=== PATIENT | male | born 1980 | race Caucasian/White ===

== ENCOUNTER 2019-11-02 09:34 | Emergency (ER) | payer MEDICAID ==
[~2019-11-02] VITALS: Ht 165.1 cm; Wt 72.6 kg
[2019-11-02 09:38] VITALS: BP 130/62
--- NOTE | 2019-11-02 09:58 | NUR ---
PT C/O DIZZINESS, RECTAL BLEEDING FOR 8 MONTHS, INTERMITENT LOWER ABDOMINAL PAIN BUT NO PAIN AT THIS TIME. DENIES N/V/D; SKIN IS PINK/WARM/DRY; AAOX4 WITH EVEN AND STEADY GAIT; LUNGS CLEAR BL; HR EVEN AND REGULAR; PT DENIES ANY FEVER, CP, SOB, OR COUGH AT THIS TIME; PATIENT STATES PAIN OF 0/10 AT THIS TIME; VSS; PATIENT POSITIONED FOR COMFORT; HOB ELEVATED; BEDRAILS UP X1; BED DOWN. ER MADE AWARE OF PT STATUS. Addendum: 11/02/19 at 1014 by MED PT DENIES RECENT WEIGHT LOSS, APPETITE CHANGES, OR FAMILY HX OF GI CANCER.
--- NOTE | 2019-11-02 10:55 | NUR ---
blood curly at bedside and walked to lab.
[2019-11-02 11:11] LABS: BASOPHILS % (AUTO) 0.7 % (0.0-2.0); EOSINOPHILS # (AUTO) 0.2 K/uL (0-0.4); EOSINOPHILS % (AUTO) 3.1 % (0.0-4.0); HEMATOCRIT 42.8 % (36-52); HEMOGLOBIN 14.2 g/dL (12.0-18.0); LYMPHOCYTES # (AUTO) 1.8 K/uL (2.0-11.5); LYMPHOCYTES % (AUTO) 28.8 % (20.5-51.1); MEAN CORPUSCULAR HEMOGLOBIN 31 pg (27-31); MEAN CORPUSCULAR HGB CONC 33 g/dL (33-37); MEAN CORPUSCULAR VOLUME 92.3 fL (80-94); MONOCYTES # (AUTO) 0.4 K/uL (0.8-1.0); NEUTROPHILS # (AUTO) 3.7 K/uL (1.8-7.7); NEUTROPHILS % (AUTO) 60.4 % (42.2-75.2); PLATELET COUNT (AUTO) 236 K/uL (140-450); RED BLOOD CELL COUNT(AUTO) 4.63 MIL/uL (4.20-6.10); RED CELL DISTRIBUTION WIDTH 14.2 % (11.6-13.7); WHITE BLOOD COUNT (AUTO) 6.1 K/uL (4.8-10.8)
[2019-11-02 11:27] LABS: PROTHROMBIN TIME 9.8 secs (10.8-13.4)
[2019-11-02 11:29] LABS: ANION GAP 12.3 (8-16); CARBON DIOXIDE 25.7 mmol/L (21-32)
[2019-11-02 11:33] LABS: ALBUMIN 3.5 g/dL (3.4-5.0); TOTAL BILIRUBIN 0.6 mg/dL (0.0-1.0)
[2019-11-02 12:06] VITALS: BP 118/55
--- NOTE | 2019-11-02 12:06 | NUR ---
Patient discharged with v/s stable. Written and verbal after care instructions given and explained. Patient verbalized understanding. Ambulatory with steady gait. All questions addressed prior to discharge. Advised to follow up with PMD.
== END 2019-11-02 12:06 | disposition home or self-care (01) ==
LOC: MED 09:34
DX: K62.5 Hemorrhage of anus and rectum (principal)
CPT/HCPCS: 36415; 80053; 82948; 85025; 85610; 85730; 86886; 86900; 86901; 99283

== ENCOUNTER 2020-05-05 23:21 | Emergency (ER) | payer MEDICAID ==
[~2020-05-05] VITALS: Ht 165.1 cm; Wt 71.3 kg
[2020-05-05 23:31] VITALS: BP 157/78
[2020-05-06] MEDS ORDERED: IBUPROFEN 800 MG TAB PO ONE (00:20)
[2020-05-06] MEDS ORDERED: cefTRIAXone 1,000 MG in LIDOCAINE MPF 1% 2.1 ML IM ONE (00:20)
[2020-05-06] MEDS ORDERED: cefTRIAXone 1,000 MG VIAL ONE (00:38)
[2020-05-06] MEDS ORDERED: LIDOCAINE MPF 1% 5 ML ONE (00:39)
[2020-05-06] MEDS ORDERED: LIDOCAINE MPF 1% 10 MG/ML VIAL INJ ONE (02:20)
[2020-05-06 03:31] VITALS: BP 157/78
--- NOTE | 2020-05-06 03:35 | NUR ---
PTS LEFT INDEX FINGER WAS CLEANED W/ NS. PTS FINGER WAS THEN COVERED W/ NON ADHERENT GAUZE PLACED ON A FINGER SPLINT AND WRAPED IN ROLL GAUZE. PTS PMSC WNL.
--- NOTE | 2020-05-06 03:35 | NUR ---
Patient discharged with v/s stable. Written and verbal after care instructions given and explained. Patient alert, oriented and verbalized understanding of instructions. Ambulatory with steady gait. All questions addressed prior to discharge. ID band removed. Patient advised to follow up with PMD. Rx of keflex, norco, ibuprofen given. Patient educated on indication of medication including possible reaction and side effects. Opportunity to ask questions provided and answered.
== END 2020-05-06 03:35 | disposition home or self-care (01) ==
LOC: MED 23:21
DX: S61.311A Laceration without foreign body of left index finger with damage to nail, initial encounter (principal); S61.309A Unspecified open wound of unspecified finger with damage to nail, initial encounter; S62.661A Nondisplaced fracture of distal phalanx of left index finger, initial encounter for closed fracture; Z71.6 Tobacco abuse counseling; W26.9XXA Contact with unspecified sharp object(s), initial encounter; Y93.89 Activity, other specified; Y92.89 Other specified places as the place of occurrence of the external cause; Y99.8 Other external cause status
CPT/HCPCS: 73140; 90471; 90715; 96372; 99284; J0696; J2001

== ENCOUNTER 2021-01-13 19:03 | Emergency (ER) | payer MEDICAID ==
[~2021-01-13] VITALS: Ht 165.1 cm; Wt 69.4 kg
[2021-01-13 19:10] VITALS: BP 107/54
--- NOTE | 2021-01-13 19:15 | NUR ---
PATIENT TO LOBBY
[2021-01-13 21:18] VITALS: BP 110/60
--- NOTE | 2021-01-13 21:18 | NUR ---
Patient discharged with v/s stable. Written and verbal after care instructions given and explained. Patient verbalized understanding. Ambulatory with steady gait. All questions addressed prior to discharge. Advised to follow up with PMD. WORK NOTE GIVEN.
== END 2021-01-13 21:18 | disposition home or self-care (01) ==
LOC: MED 19:03
DX: S20.20XA Contusion of thorax, unspecified, initial encounter (principal); Z90.49 Acquired absence of other specified parts of digestive tract; X58.XXXA Exposure to other specified factors, initial encounter; Y93.89 Activity, other specified; Y92.89 Other specified places as the place of occurrence of the external cause; Y99.0 Civilian activity done for income or pay
CPT/HCPCS: 71101; 93005; 99283

== ENCOUNTER 2021-01-23 11:01 | Emergency (ER) | payer MEDICAID ==
[~2021-01-23] VITALS: Ht 165.1 cm; Wt 72.6 kg
[2021-01-23 11:06] VITALS: BP 119/84
--- NOTE | 2021-01-23 11:11 | NUR ---
PATIENT AMBULATED TO BED 7.
[2021-01-23] MEDS ORDERED: KETOROLAC 60 MG/2 ML VIAL IM ONE (11:15)
--- NOTE | 2021-01-23 11:20 | NUR ---
41 y/o M BIB self from home with c/c left rib pain. Patient A&Ox4, ambulatory, reports L rib pain s/p injury at work 2 weeks ago. 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 Patient states pain worsens with specific movements. Patient denies any medications prior to arrival. Denies abdominal pain, headache, chest pain, SOB, numbness/tingling to extremities. Left rib tender upon palpation; no redness or swelling noted. Bed locked in lowest position, side rails x 1. PMH/Sx/Meds: Denies NKA
--- NOTE | 2021-01-23 11:30 | NUR ---
Pt transported to [facility] via wheelchair
--- NOTE | 2021-01-23 11:42 | NUR ---
PT RETURNED FROM [facility]
--- NOTE | 2021-01-23 12:15 | NUR ---
KIRSTY Bowman evaluating pt at bedside.
[2021-01-23] MEDS ORDERED: NAPR-1704 PO (12:27)
[2021-01-23 12:37] VITALS: BP 119/84
--- NOTE | 2021-01-23 12:38 | NUR ---
Patient discharged with v/s stable. Written and verbal after care instructions ABOUT RIB FRACTURE given and explained. Patient alert, oriented and verbalized understanding of instructions. Ambulatory with steady gait. All questions addressed prior to discharge. ID band removed. Patient advised to follow up with PMD. Rx of NAPROXEN given. Patient educated on indication of medication including possible reaction and side effects. Opportunity to ask questions provided and answered.
== END 2021-01-23 12:38 | disposition home or self-care (01) ==
LOC: MED 11:01
DX: S22.42XA Multiple fractures of ribs, left side, initial encounter for closed fracture (principal); W22.8XXA Striking against or struck by other objects, initial encounter; Y93.89 Activity, other specified; Y92.89 Other specified places as the place of occurrence of the external cause; Y99.8 Other external cause status
CPT/HCPCS: 71101; 96372; 99283; J1885

== ENCOUNTER 2021-06-06 11:56 | Emergency (ER) | payer MEDICAID, SELFPAY ==
[~2021-06-06] VITALS: Ht 165.1 cm; Wt 72.6 kg
[~2021-06-06 11:56] MED LIST: NAPR-1704 PO
[2021-06-06 12:58] VITALS: BP 108/53
--- NOTE | 2021-06-06 13:03 | NUR ---
TENT4
--- NOTE | 2021-06-06 13:20 | NUR ---
COVID RAPID SWAB DONE.
[2021-06-06] MEDS ORDERED: AZIT250T4 PO (13:24)
[2021-06-06] MEDS ORDERED: PHEN177S23 PO (13:24)
[2021-06-06] MEDS ORDERED: NAPR-54 PO (13:24)
--- NOTE | 2021-06-06 14:19 | NUR ---
NO NUSING CARE GIVEN-Patient discharged with v/s stable. Written and verbal after care instructions given and explained. Patient alert, oriented and verbalized understanding of instructions. Ambulatory with steady gait. All questions addressed prior to discharge. ID band removed. Patient advised to follow up with PMD. Rx of ZITHROMAX, NAPROSYN, CHLORASEPTIC given. Patient educated on indication of medication including possible reaction and side effects. Opportunity to ask questions provided and answered.
[2021-06-06 14:21] VITALS: BP 100/50
== END 2021-06-06 14:19 | disposition home or self-care (01) ==
LOC: MED 11:56
DX: U07.1 COVID-19 (principal)
CPT/HCPCS: 99283

== ENCOUNTER 2022-03-13 16:03 | Emergency (ER) | payer MEDICAID ==
[~2022-03-13] VITALS: Ht 162.6 cm; Wt 74.8 kg
[~2022-03-13 16:03] MED LIST changes: +AZIT250T4 PO; +NAPR-54 PO; +PHEN177S23 PO
[2022-03-13 16:15] VITALS: BP 124/67
--- NOTE | 2022-03-13 16:17 | NUR ---
PT TO BED 09 AMBULATORY
--- NOTE | 2022-03-13 17:06 | NUR ---
PT'S BI-LATERAL EARS IRRIGATED WITH NORMAL SALINE AND HYDROGEN PEROXIDE. PA AND RN NOTIFIED.
--- NOTE | 2022-03-13 17:10 | NUR ---
42M PRESENTS TO ED WITH C/O BILATERAL EAR PAIN SINCE FRIDAY S/P CLEANING EARS WITH A Q TIP. PT REPORTS DIMINSHED HEARING, WORSENING ON THE LEFT SIDE. PT ALSO COMPLAINS OF INTERMITTENT HEADACHE. EAR WAX BUILD UP NOTED TO BILATERAL EARS. PT DENIES COUGH FEVER CHILLS OR RECENT SICK CONTACTS.
[2022-03-13] MEDS ORDERED: OFLO5SOL27 BOTH EARS (17:16)
--- NOTE | 2022-03-13 17:38 | NUR ---
Patient discharged with v/s stable. Written and verbal after care instructions ABOUT EARWAX BUILDUP given and explained. Patient alert, oriented and verbalized understanding of instructions. Ambulatory with steady gait. All questions addressed prior to discharge. ID band removed. Patient advised to follow up with PMD. Rx of OFLOXACIN given. Patient educated on indication of medication including possible reaction and side effects. Opportunity to ask questions provided and answered.
== END 2022-03-13 17:38 | disposition home or self-care (01) ==
LOC: MED 16:03
DX: H61.23 Impacted cerumen, bilateral (principal); F17.210 Nicotine dependence, cigarettes, uncomplicated; Z79.899 Other long term (current) drug therapy; Z90.49 Acquired absence of other specified parts of digestive tract; Z71.6 Tobacco abuse counseling
CPT/HCPCS: 99283

== ENCOUNTER 2023-08-21 11:01 | Emergency (ER) | payer MEDICAID, OTHER ==
[~2023-08-21] VITALS: Ht 165.1 cm; Wt 72.6 kg
[~2023-08-21 11:01] MED LIST changes: +OFLO5SOL27 BOTH EARS
[2023-08-21 11:06] VITALS: BP 123/77; PULSE 78; RESP 18; TEMP 97.4; O2SAT 97
[2023-08-21 11:35] LABS: BASOPHILS % (AUTO) 0.5 % (0.0-2.0); EOSINOPHILS # (AUTO) 0.1 K/uL (0-0.4); EOSINOPHILS % (AUTO) 0.9 % (0.0-4.0); HEMATOCRIT 42.6 % (36-52); HEMOGLOBIN 14.5 g/dL (12.0-18.0); LYMPHOCYTES # (AUTO) 2.5 K/uL (2.0-11.5); LYMPHOCYTES % (AUTO) 34.1 % (20.5-51.1); MEAN CORPUSCULAR HEMOGLOBIN 31 pg (27-31); MEAN CORPUSCULAR HGB CONC 34 g/dL (33-37); MEAN CORPUSCULAR VOLUME 89.7 fL (80-94); MONOCYTES # (AUTO) 0.5 K/uL (0.8-1.0); MONOCYTES % (AUTO) 6.9 % (1.7-9.3); NEUTROPHILS # (AUTO) 4.2 K/uL (1.8-7.7); NEUTROPHILS % (AUTO) 57.6 % (42.2-75.2); PLATELET COUNT (AUTO) 289 K/uL (140-450); RED BLOOD CELL COUNT(AUTO) 4.75 MIL/uL (4.20-6.10); RED CELL DISTRIBUTION WIDTH 14.3 % (11.6-13.7); WHITE BLOOD COUNT (AUTO) 7.4 K/uL (4.8-10.8)
[2023-08-21 12:03] LABS: ANION GAP 13.3 (8-16); CALCIUM 8.2 mg/dL (8.5-10.1); CARBON DIOXIDE 24.6 mmol/L (21-32); CREATININE 0.8 mg/dL (0.6-1.3); POTASSIUM 3.9 mmol/L (3.5-5.1)
[2023-08-21] MEDS ORDERED: HYDR25SU91 RC (12:26)
[2023-08-21 12:34] VITALS: BP 119/68; PULSE 71; RESP 16; TEMP 98; O2SAT 99
== END 2023-08-21 12:35 | disposition home or self-care (01) ==
LOC: MED 11:01
DX: K62.5 Hemorrhage of anus and rectum (principal); Z79.899 Other long term (current) drug therapy
CPT/HCPCS: 36415; 80048; 85025; 99283

== ENCOUNTER 2023-09-24 08:34 | Day surgery (SDC) | payer OTHER ==
[~2023-09-24] VITALS: Ht 165.1 cm; Wt 72.6 kg
[~2023-09-24 08:34] MED LIST changes: +HYDR25SU91 RC; +NAPR-337 PO; -NAPR-54 PO
[2023-09-24] MEDS ORDERED: fentaNYL citrate 0.05 MG/ML VIAL ONE (10:50)
[2023-09-24] MEDS ORDERED: MIDAZOLAM 5 MG/5 ML VIAL ONE (10:50)
[2023-09-24] MEDS: MIDAZOLAM 2 MG/2 ML VIAL IVP ONE (11:20)
[2023-09-24] MEDS: LIDOCAINE 2% 100 MG/5 ML UJET TP ONE (11:20)
[2023-09-24] MEDS: fentaNYL citrate 0.05 MG/ML VIAL IVP ONE (11:21)
[2023-09-24] MEDS ORDERED: FENTANYL C 0.025 MG/HR PATCH TD SCH (12:35)
== END 2023-09-24 12:46 | disposition home or self-care (01) ==
LOC: MDS 08:34 → MMU 08:36 → MDS 12:46
PROVIDERS: ATTEND Internal Medicine Gastroenterology
DX: K62.5 Hemorrhage of anus and rectum (principal); K21.9 Gastro-esophageal reflux disease without esophagitis; K64.8 Other hemorrhoids; R12 Heartburn; F41.9 Anxiety disorder, unspecified; F32.A Depression, unspecified; F17.210 Nicotine dependence, cigarettes, uncomplicated; Z79.899 Other long term (current) drug therapy; Z98.890 Other specified postprocedural states
CPT/HCPCS: 43235; 45350; J2250; J3010

== ENCOUNTER 2024-01-16 09:53 | Day surgery (SDC) | payer OTHER ==
[~2024-01-16] VITALS: Ht 165.1 cm; Wt 72.6 kg
[2024-01-16] MEDS ORDERED: fentaNYL citrate 0.05 MG/ML VIAL ONE ×2 (11:22→12:29)
[2024-01-16] MEDS ORDERED: LIDOCAINE 2% 100 MG/5 ML UJET TP ONE ×2 (11:22→12:28)
[2024-01-16] MEDS ORDERED: KETOROLAC 30 MG/ML VIAL ONE (13:11)
[2024-01-16] MEDS: KETOROLAC 30 MG/ML VIAL IVP ONE (13:13)
== END 2024-01-16 14:00 | disposition home or self-care (01) ==
LOC: MDS 09:53 → MMU 10:14 → MDS 14:00
PROVIDERS: ATTEND Internal Medicine Gastroenterology
DX: K62.5 Hemorrhage of anus and rectum (principal); K64.1 Second degree hemorrhoids; K21.9 Gastro-esophageal reflux disease without esophagitis; F17.210 Nicotine dependence, cigarettes, uncomplicated; Z79.899 Other long term (current) drug therapy; Z98.890 Other specified postprocedural states
CPT/HCPCS: 45330; J1885; 45350; J3010